=== PATIENT | female | born 1980 | race African-American/Black ===

== ENCOUNTER 2020-01-18 10:37 | Emergency (ER) | payer SELFPAY ==
[~2020-01-18] VITALS: Ht 162.6 cm; Wt 84.8 kg
[2020-01-18] MEDS ORDERED: PEPCID20 MG PO (11:14)
[2020-01-18] MEDS ORDERED: BENADRYL25 M1 PO (11:14)
[2020-01-18] MEDS ORDERED: PREDNISONE20 MG PO (11:14)
[2020-01-18] MEDS ORDERED: FAMOTIDINE 20 MG TAB PO ONE (11:15)
[2020-01-18] MEDS ORDERED: PREDNISONE 20 MG TAB PO ONE (11:15)
--- NOTE | 2020-01-18 11:26 | Emergency Department Note ---
History of Present Illnes History of Present Illness Chief Complaint: itchy/swollen eyelids s/p placing fake eyelashes History of Present Illness This is a 40 year old female . Historian: Patient Arrival Mode: Car Additional Treatment HEAD OF STRATEGY: pt did remove fake eyelashes History limited by: condition of the patient (normal) Distribution Spec Required: No Onset (how long ago): day(s) (2) Location: bilateral eyelids Quality: itchy Radiation: Reports non-radiation Severity: moderate Onset quality: gradual Duration (how long): day(s) Timing of current episode: constant Progression: worsening Chronicity: new Context: Denies recent illness, Denies recent surgery, Denies recent immobilization, Denies recent travel, Denies trauma/injury, Denies new medications, Denies hx of DVT/PE Relieving factors: none Exacerbating factors: none Associated symptoms: Reports denies other symptoms Treatments prior to arrival: none Past Medical/Family History Physician Review I have reviewed the patient's past medical and family history. Any updates have been documented here. Past Medical History Recent Fever: No Clinical Suspicion of Infectio: No New/Unexplained Change in Ment: No Past Medical History: Hypertension Other Surgery: etopic preg Social History Smoking Cessation: Never Smoker Counseling Performed: No Alcohol Use: None Any Illegal Drug Use: No Physically hurt or threatened: No Other Any Pre-Existing Lines (PICC,: No Review of Systems Review of Systems Constitutional: Reports no symptoms EENTM: Reports no symptoms Cardiovascular: Reports no symptoms Respiratory: Reports no symptoms Gastrointestinal: Reports no symptoms Genitourinary: Reports no symptoms Musculoskeletal: Reports no symptoms Integumentary: Reports as per HPI, Reports rash Neurological: Reports no symptoms Psychological: Reports no symptoms Endocrine: Reports no symptoms Hematological/Lymphatic: Reports no symptoms Review of other systems: All other systems negative Physical Exam Related Data Allergies: Coded Allergies: No Known Allergies (Unverified , 01/18/20) Triage Vital Signs Vital Signs Date Time Temp Pulse Resp B/P (MAP) Pulse Ox O2 Delivery O2 Flow Rate FiO2 01/18/20 11:01 98.7 82 18 174/103 100 Vital signs reviewed: Yes Physical Exam CONSTITUTIONAL Constitutional: Present well-developed, Present well-nourished HENT HENT: Present normocephalic, Present atraumatic, Present oropharynx clear/moist, Present nose normal HENT L/R: Present left ext ear normal, Present right ext ear normal EYES Eyes: Reports PERRL, Reports conjunctivae normal, Reports other NECK Neck: Present ROM normal, Present supple PULMONARY Pulmonary: Present effort normal, Present breath sounds normal CARDIOVASCULAR Cardiovascular: Present regular rhythm, Present heart sounds normal, Present capillary refill normal, Present normal rate GASTROINTESTINAL Abdominal: Present soft, Present nontender, Present bowel sounds normal GENITOURINARY Genitourinary: Present exam deferred SKIN Skin: Present warm, Present dry, Present rash (bilateral eyelids(swollen/erythematous)) MUSCULOSKELETAL Musculoskeletal: Present ROM normal NEUROLOGICAL Neurological: Present alert, Present oriented x 3, Present no gross motor or sensory deficits PSYCHOLOGICAL Psychological: Present mood/affect normal, Present behavior normal, Present judgement normal Assessment & Plan Medical Decision Making MDM take prescribed med Assessment & Plan Final Impression: (1) Allergic reaction Depart Disposition: HOME, SELF-CARE Last Vital Signs Date Time Temp Pulse Resp B/P (MAP) Pulse Ox O2 Delivery O2 Flow Rate FiO2 01/18/20 11:01 98.7 82 18 174/103 100 Home Meds Active Scripts Prednisone (PREDNISONE) 20 Mg Tab, 60 MG PO DAILY, #18 TAB start tomorrow Prov:RUBY HENDRIX 01/18/20 Famotidine (PEPCID) 20 Mg Tablet, 20 MG PO Q12H for 10 Days, #20 TAB Prov:RUBY HENDRIX 01/18/20 Diphenhydramine Hcl (BENADRYL) 25 Mg Capsule, 2 TAB PO Q6H PRN for ITCHING, #40 TAB Prov:RUBY HENDRIX 01/18/20 Medications in the ED Prednisone 60 mg ONCE ONCE PO Last administered on 01/18/20at 11:10; Admin Dose 60 MG; Start 01/18/20 at 11:15; Stop 01/18/20 at 11:16; Status UNV Famotidine 20 mg ONCE ONCE PO Last administered on 01/18/20at 11:11; Admin Dose 20 MG; Start 01/18/20 at 11:15; Stop 01/18/20 at 11:16; Status UNV RUBY HENDRIX Jan 18, 2020 11:26
== END 2020-01-18 11:40 | disposition home or self-care (01) ==
LOC: FSED 11:15
DX: T78.49XA Other allergy, initial encounter (principal); T49.8X5A Adverse effect of other topical agents, initial encounter
CPT/HCPCS: 99283; J7512